=== PATIENT | female | born 1955 | race Caucasian/White ===

== ENCOUNTER 2016-12-19 08:01 | Outpatient (CLI) ==
[2014-06-20 18:57] VITALS: BMI 33.9
--- NOTE | 2016-12-19 08:50 | MAMMO ---
EXAM: Bilateral digital screening mammogram History: Screening Comparison: Bilateral mammogram 11/22/2015 Findings: MLO and CC views of bilateral breasts demonstrate scattered fibroglandular breast parench yma. Biopsy clips again seen within both breasts. There are no dominant masses and no suspicious m icrocalcifications. No architectural distortions. Impression: Benign stable mammogram. Recommend followup routine screening mammography in 1 year. BIRADS 2
== END 2016-12-19 08:02 | disposition home or self-care (01) ==
LOC: RAD 08:01
PROVIDERS: ATTEND Family Medicine
DX: Z12.31 Encounter for screening mammogram for malignant neoplasm of breast (principal)

== ENCOUNTER 2017-12-24 09:31 | Outpatient (CLI) ==
[2014-06-20 18:57] VITALS: BMI 33.9
== END 2017-12-24 09:32 | disposition home or self-care (01) ==
LOC: RAD 09:31
PROVIDERS: ATTEND Family Medicine
DX: Z12.31 Encounter for screening mammogram for malignant neoplasm of breast (principal)
CPT/HCPCS: 77067

== ENCOUNTER 2018-03-19 09:16 | Outpatient (CLI) ==
[2014-06-20 18:57] VITALS: BMI 33.9
--- NOTE | 2018-03-19 11:50 | US ---
Exam: Norton-scale and color ultrasonographic evaluation of the kidneys and urinary bladder. Comparison: None available. Reason for exam: Decreased renal function. FINDINGS: Findings are limited by patient body habitus and technique. The right kidney measures approximately 12.0 x 5.0 x 3.7 cm without hydronephrosis or nephrolithiasis . In the inferior portion of the right kidney there is a 3.0 x 2.5 x 3.4 cm cortical lobulation versus mass with internal vascularity. The left kidney measures approximately 11.6 x 5.6 x 3.8 cm without hydronephrosis or nephrolithiasis. The partially imaged bladder appears grossly unremarkable although evaluation is limited by non diste nsion. Impression: 1. Limited evaluation with a 3.4 cm cortical lobulation versus parenchymal mass in the right inferio r renal pole. Further evaluation is recommended with MRI or CT imaging renal mass protocol. 2. No obvious hydronephrosis or nephrolithiasis in either kidney. 3. The bladder is incompletely evaluated secondary to non distension
== END 2018-03-19 09:17 | disposition home or self-care (01) ==
LOC: RAD 09:16
PROVIDERS: ATTEND Family Medicine
DX: N28.9 Disorder of kidney and ureter, unspecified (principal)

== ENCOUNTER 2018-03-27 11:34 | Outpatient (CLI) ==
[2014-06-20 18:57] VITALS: BMI 33.9
--- NOTE | 2018-03-27 12:27 | CT ---
EXAM: CT of the abdomen pelvis without contrast History: Right renal mass seen on ultrasound. Comparison: Renal ultrasound 03/19/2018 Technique: Multiplanar CT images through the abdomen pelvis were obtained without the administration of IV contrast Findings: Heart is borderline enlarged. Lung bases are clear. No acute osseous abnormalities. Status post cholecystectomy. No focal liver or splenic lesions. No peripancreatic inflammation. Ad renal glands are unremarkable. No renal stones and no hydronephrosis. Evaluation for renal masses i s limited due to lack of IV contrast but no obvious renal masses are seen. No bowel obstruction. Th e appendix is normal. No bladder wall thickening. No free air and no ascites. Adnexal structures a ppear appropriate for patient's age. No perirectal inflammation. No inflammatory stranding. Impression: 1. No acute intra-abdominal or pelvic process. 2. No renal masses
== END 2018-03-27 11:35 | disposition home or self-care (01) ==
LOC: RAD 11:34
PROVIDERS: ATTEND Family Medicine
DX: N28.89 Other specified disorders of kidney and ureter (principal)